=== PATIENT | male | born 1985 | race African-American/Black ===

== ENCOUNTER 2017-09-18 14:16 | Emergency (ER) | payer SELFPAY ==
[2017-09-18] MEDS ORDERED: Ketorolac Tromethamine 30 MG/ML VIAL ONE (14:33)
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
== END 2017-09-18 16:09 | disposition home or self-care (01) ==
LOC: ERS 14:16
DX: M79.641 Pain in right hand (principal); R03.0 Elevated blood-pressure reading, without diagnosis of hypertension; F31.9 Bipolar disorder, unspecified; F17.210 Nicotine dependence, cigarettes, uncomplicated
CPT/HCPCS: 96372; J1885

== ENCOUNTER 2017-10-03 12:46 | Emergency (ER) | payer SELFPAY ==
[2017-10-03] MEDS ORDERED: Fluorescein Opthalmic Strip ONE (13:29)
[2017-10-03] MEDS ORDERED: Proparacaine 0.5% Opth 15 ML BOT ONE (13:30)
== END 2017-10-03 14:10 | disposition home or self-care (01) ==
LOC: ERS 12:46
DX: S05.02XA Injury of conjunctiva and corneal abrasion without foreign body, left eye, initial encounter (principal); F32.9 Major depressive disorder, single episode, unspecified; F17.210 Nicotine dependence, cigarettes, uncomplicated; Y33.XXXA Other specified events, undetermined intent, initial encounter
CPT/HCPCS: 99283